=== PATIENT | male | born 1985 | race Caucasian/White ===

== ENCOUNTER 2019-09-07 17:31 | Inpatient (IN) ==
[2019-09-07] MEDS ORDERED: NS IV ONE ×2 (18:01→18:30)
[2019-09-07] MEDS ORDERED: ANTIZOL IV ONE ×2 (18:01→18:30)
[2019-09-07 18:18] LABS: BE 0.2 mmoll (-3.0-3.0); BLOOD TYPE ARTERIAL; HCO3-(ACT) 24.8 mmoll (20.0-26.0); PCO2(98.6) 34 mmHg (35-45); PO2(98.6) 88 mmHg (60-100); SAMPLE BLOOD; SAO2 98.2 % (95.0-100.0); THB 15.1 g/dL (11.5-17.4); pH(98.6) 7.45 (7.35-7.45)
[2019-09-07 18:23] LABS: BASO# 0.04 X1000 (0.0-0.2); BASO% 0.4 % (0.0-0.8); EOS# 0.16 X1000 (0.0-0.7); EOS% 1.7 % (0.0-10.0); HEMOGLOBIN 14.3 g/dL (14.0-18.0); IMM GRAN# 0.01 X1000 (0.0-0.04); IMM GRAN% 0.1 % (0.0-0.5); LYMPH# 1.84 X1000 (1.2-3.4); LYMPH% 19.4 % (20.5-51.1); MCH 22.3 PG (27-31); MCHC 32.5 g/dL (33-37); MCV 68.5 FL (81-99); MONO# 0.77 X1000 (0.11-0.59); MONO% 8.1 % (1.7-9.3); MPV 11.3 FL (7.4-10.4); NEUT# 6.68 X1000 (1.4-6.5); NEUT% 70.3 % (42.2-75.2); PLT 213 X1000 (130-400); RBC 6.42 XMIL (4.7-6.1)
[2019-09-07 18:30] LABS: O2HB 89.1 % (95.0-99.0)
[2019-09-07 18:31] LABS: ALLEN TEST YES; MODALITY ROOM AIR
[2019-09-07 18:42] LABS: ACETAMINOPHEN < 1.2 ug/mL (10-30); AGAP 16; ALBUMIN 4.7 g/dL (3.5-5.0); ALKALINE PHOSPHATASE 84 U/L (32-122); BUN 13 mg/dL (8-22); CALCIUM 9.6 mg/dL (8.8-10.2); CHLORIDE 101 mmol/L (98-107); COSMO 282; CREATININE 0.8 mg/dL (0.7-1.2); ESTIMATED GFR > 60; GLUCOSE 104 mg/dL (70-104); GOT 14 U/L (10-34); GPT 16 U/L (10-44); POTASSIUM 4.2 mmol/L (3.5-5.1); SALICYLATES < 3.00 mg/dL (3-10); SODIUM 141 mmol/L (136-145); TCO2 24 mmol/L (25-35); TOTAL PROTEIN 7.6 g/dL (6.3-8.3)
--- NOTE | 2019-09-07 18:59 | PROVIDER DOCUMENTATION ---
This chart was entered by Nelsy Price Scribe, acting as scribe for Virgil Pastrana MD. HPI-Psychological Disorder - General Chief Complaint: Suicide Attempt Stated Complaint: SI/ antifreeze ingestion Time Seen by Provider: 09/07/19 17:59 Source: patient Allergies/Adverse Reactions: Patient Allergies Allergy/AdvReac Type Severity Reaction Status Date / Time Sulfa (Sulfonamide Allergy Severe ANAPHYLAXIS Verified 09/07/19 18:06 Antibiotics) ibuprofen Allergy VOMITING Verified 09/07/19 18:06 latex Allergy RASH Verified 09/07/19 18:06 Home Medications: Home Medication List Medication Instructions Recorded Confirmed Last Taken Type NK [No Home Medications] 09/07/19 09/07/19 Unknown History - History of Present Illness-Psych Nature of Presenting Problem: pt is a 34 yr old male presenting via EMS with report of suicidal ideation, pt was witnessed by father in law drinking a half gallon of [place] brand antifreeze, 50% ethyl glycol content, father in law immediately called 911 for EMS transport. upon initial exam pt suicidal and refuses help, reports he wants to and he did not want any intervention to save him, after discussion regarding his 5yr old child pt agrees to accept our help. Onset/Duration: reports: 1/2 hour ago (.5hr LIST OF FIRST JOB IDEAS) Timing: reports: still present Severity: reports: severe Situational problems related to:: reports: significant other Psychiatric Complaints: reports: depressed, suicidal ideation Substance Use: reports: denies Previous psych related hospitalizations?: No Patient arrived by:: EMS called by spouse/family (father in law) Similar Symptoms Previously?: No Recently seen or treated by another doctor?: No - Suicidal Ideation How did the ingestion/other suicidal act come to attention?: attempt witnessed by father in law Suicide Risk Assessment: depressed, organized plan, frightened friends-family Clinician's estimation of suicide risk?: high risk Suicidal Attempt Method: reports: Other (anti freeze) Review of Systems - Adult - REVIEW OF SYSTEMS - ADULT Constitutional: reports: no symptoms reported. denies: chills, fever, fatique Eyes: reports: no symptoms reported Ears, Nose, Mouth & Throat: reports: no symptoms reported Cardiovascular: reports: no symptoms reported Respiratory: reports: no symptoms reported Gastrointestinal: reports: no symptoms reported Genitourinary: reports: no symptoms reported Musculoskeletal: reports: no symptoms reported Integumentary: reports: no symptoms reported Neurological: reports: no symptoms reported Psychiatric: reports: anxiety, depression, emotional problems, suicidal thoughts Endocrine: reports: no symptoms reported Hematologic/Lymphatic: reports: no symptoms reported Allergic/Immunologic: reports: no symptoms reported All Other Systems: Reviewed and Negative Past History - Adult - PAST MEDICAL HISTORY-ADULT Review of Records: reports: Nursing Assessment Review, Medications Reviewed, Social history reviewed & non-contributory. 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) Cardiovascular: reports: denies history Respiratory: reports: asthma Gastrointestinal: reports: denies history Obstetrical/Gynecological: reports: denies history Genitourinary: reports: denies history Musculoskeletal: reports: denies history Neurological: reports: denies history Psychiatric: reports: anxiety, depression Endocrine/Immune: reports: denies history Other Conditions: reports: denies history - PRIOR SURGERIES/PROCEDURES Surgical/Procedure History: reports: none - IMMUNIZATION STATUS Childhood Immunizations: See Nurse Assessment Flu Vaccine: See Nurse Assessment - FAMILY HISTORY Family History: reviewed, not pertinent - SOCIAL HISTORY Smoking: cigarettes Provider spent 3-5 mins advising pt. on dangers of tobacco.: Discussed manners to quit use, and f/u contacts for add'l counseling. 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 negative: agitated Behavior/Eye Contact/Speech: cooperative, good eye contact, normal speech, other (mild to moderately intoxicated) Thoughts/Hallucinations: normal thought pattern, no apparent hallucination HENMT: normocephalic/atraumatic, moist mucous membranes, normal ENT inspection Neck: non-tender, full range of motion, supple, normal inspection Respiratory: chest non-tender, lungs clear, normal breath sounds Cardiovascular: normal peripheral pulses, regular rate, rhythm, no edema Abdominal Exam: normal bowel sounds, non tender, soft Lymphatic: no adenopathy Back Exam: normal inspection, no CVA tenderness, no vertebral tenderness Extremity: normal range of motion, non-tender, normal gait, normal inspection Integumentary: normal color, normal turgor, warm/dry Progress - PLAN OF CARE/RESULTS Progress/Plan/Lab Results: Orders Category Date Time Status Admit - [facility] Routine AdmDCTranf 09/07/19 22:29 Active Admit - [facility] Routine AdmDCTranf 09/07/19 19:23 Active Activity - Bedrest with BSC ORDERED Care 09/07/19 22:29 Active Apply Mechanical Device [QM] ORDERED Care 09/07/19 22:29 Completed Aspiration Precautions DIRECTED Care 09/07/19 22:34 Active Cardiac Monitoring DIRECTED Care 09/07/19 18:00 Completed Elevate Head of Bed DIRECTED Care 09/07/19 22:34 Active FSBS/Accucheck Result Q4HR Care 09/07/19 22:29 Active Finger Stick Blood Sugar (ED) DIRECTED Care 09/07/19 18:00 Completed Initiate Psych Med Clear.Chelsey DIRECTED Care 09/07/19 18:22 Completed Intake and Output-Strict ORDERED Care 09/07/19 22:29 Active Misc. NRSG Communication Order DIRECTED Care 09/07/19 22:34 Active NG/OG/Feeding Tube Insertion ORDERED Care 09/07/19 18:29 Completed Neurological Check Q4H Care 09/07/19 22:34 Active Nursing- Assist w/ IS as order [id number] Care 09/07/19 22:29 Active Nursing- MD Consult Request ROUTINE Care 09/07/19 22:32 Completed Psy Observation/Precaution .1:1 Observation Care 09/07/19 18:22 Active Psy Observation/Precaution .Q15 Minute Observation Care 09/07/19 18:22 Active Vital Signs Order Q 4-HR ASSESS Care 09/07/19 22:30 Active Z-Document. for Tele Applied ORDERED Care 09/07/19 22:30 Completed Physician/Provider Consults Routine Cons 09/08/19 07:00 Ordered NPO Diet 09/07/19 22:31 Completed CHEST-PORTABLE [RAD] Stat Exams 09/07/19 18:35 Completed ABG [RESP] Routine Lab 09/07/19 18:04 Completed ABG [RESP] Routine Lab 09/08/19 04:44 Completed ACETAMINOPHEN [TDM] Stat Lab 09/07/19 18:03 Completed ACETAMINOPHEN [TDM] Stat Lab 09/07/19 22:34 Completed ALCOHOL BLOOD Stat Lab 09/07/19 18:03 Completed BASIC METABOLIC PANEL [CHEM] Q4H Lab 09/07/19 23:30 Completed BASIC METABOLIC PANEL [CHEM] Q4H Lab 09/08/19 02:55 Completed CBC WITH DIFF [HEME] Routine Lab 09/08/19 04:00 Completed CBC WITH ELECTRONIC DIFF [HEME] Stat Lab 09/07/19 18:03 Completed COMPREHENSIVE METABOLIC PANEL [CHEM] Routine Lab 09/08/19 04:00 Completed COMPREHENSIVE METABOLIC PANEL [CHEM] Stat Lab 09/07/19 18:03 Completed LACTATE, PLASMA [CHEM] Stat Lab 09/07/19 18:03 Completed MAGNESIUM [CHEM] Q4H Lab 09/07/19 23:30 Completed MAGNESIUM [CHEM] Q4H Lab 09/08/19 02:55 Completed MAGNESIUM [CHEM] Routine Lab 09/08/19 04:00 Completed PHOSPHORUS [CHEM] Q4H Lab 09/07/19 23:30 Completed PHOSPHORUS [CHEM] Q4H Lab 09/08/19 02:55 Completed SALICYLATES [TDM] Stat Lab 09/07/19 18:03 Completed SALICYLATES [TDM] Stat Lab 09/07/19 22:34 Completed SERUM OSMOLALITY [CHEM] Stat Lab 09/07/19 18:03 Completed URINALYSIS [URINALYSIS] Stat Lab 09/07/19 20:50 Com[address]UG SCREEN PL Stat Lab 09/07/19 20:50 Completed Fomepizole [Antizol] 1.25 gm Med 09/07/19 18:30 Discontinued 0.9% Sodium Chloride Inj [Ns] 100 ml IV ONCE Incentive Spirometer Routine Oth 09/07/19 22:29 Completed Oxygen Device Routine Oth 09/07/19 22:29 Completed Pulse Oximetry Routine Oth 09/07/19 22:29 Completed Telemetry [OM.EQ] Routine Oth 09/07/19 22:29 Active EKG [EKG] Stat Ther 09/07/19 18:00 Draft XXNasogastric Tube Placement Routine Ther 09/07/19 18:19 Ordered Transfer/Admit Order [TRANSFER] Routine Transfer 09/07/19 19:30 Completed Result Diagrams: 09/09/19 05:00 09/09/19 17:47 - REASSESSMENT Reassessment #1 Time Reassessed: 18:42 Status: unchanged (100ml gastric contents out by ng tube. inital L.A. 3.0. Fomepazole loading dose began infusion 18:32. pt mother at bedside and helped steve rene childhood hx.) - EKG 1 Time of EKG reading by physician:: 18:01 EKG Read and Signed by:: Virgil Pastrana EKG Interpretation (*Must complete 3 of following elements*): Normal Rate: 86 Rhythm: nsr [place]: normal QRS: normal DC Interval: normal ST Wave: normal - XRAY 1 XRAY Study: Chest Impression: Normal (lungs expanded, tip of ng tube in stomach) - CONSULTS/PCP/HOSPITALIST Notification #1 *Consult/PCP/Hospitalist*: Dr Banks Time Discussed: 18:20 Reason/Comments: discussed plan of care for pt admission by transfer to [facility] Consult Disposition: Admit (icu) #2 Consult: Dr Lucian Silva-poison control Time Discussed: 18:10 Reason/Comments: discussed specifc treatment including appropriate Fomepizole dosing - CHANGE OF SHIFT REPORT (ED Provider) 1 Report Given and Care Transferred to:: DR Keyshawn BUSTILLO Time of Transfer: 19:00 Items Pending: Physician Consult/Arrival Departure - Departure Date of Disposition Decision: 09/07/19 Time of Disposition Decision: 18:22 DIAGNOSIS: Ethylene glycol poisoning, Suicide attempt Disposition: ADMITTED INPATIENT 09 Certified Medical Emergency: Emergent Condition: Fair - Critical Care Note This patient required my direct & personal management of CC.: Yes Total Time (mins): 80 Critical Care Statement: This patient required my direct personal management to treat or rule out processes, the absence of which, could potentiallly result in sudden, clinically significant life or limb threatening deterioration. Attestation - Physician/ CARRIE Attestation Patient care was provided by Advanced Practice Provider:: No The physician spent face to face time with patient:: Yes Advanced Practice Provider documentation review:: Supervising physician onsite and consulted in the evaluation and care of this patient. The physician did have a face to face encounter with the patient. This chart was documented by the indicated scribe, (Nelsy Price Scribe) and accurately reflects the services I performed and decisions made by me, Hari lantigua,Virgil Martinez MD, as attested by the provider's signature.
--- NOTE | 2019-09-07 19:20 | Diag Imaging Result Doc PS360 ---
EXAM: CHEST-PORTABLE HISTORY: ng tube placement TECHNIQUE: Single view COMPARISON: None. FINDINGS: The lungs are well expanded. A nasogastric tube overlies the esophagus and stomach. The heart is not enlarged. The vessels are not distended. There are no infiltrates. No effusion identified. IMPRESSION: Nasogastric tube in good position. Electronically signed by Jerry Pitt 09/07/2019 7:18 PM
--- NOTE | 2019-09-07 20:30 | EKG Report ---
Test Performed on : 09/07/2019 6:01:53 PM Test Reason : overdose Blood Pressure : / mmHG Vent. Rate : 086 BPM Atrial Rate : 086 BPM P-R Int : 126 ms QRS Dur : 090 ms QT Int : 372 ms P-R-T Axes : 071 086 067 degrees QTc Int : 445 ms Normal sinus rhythm. Normal ECG No previous ECGs available Unconfirmed Result
[2019-09-07 20:58] LABS: URINE SOURCE CLEAN CATCH
[2019-09-07 21:05] LABS: BILIRUBIN URINE NEGATIVE (NEGATIVE); BLOOD URINE NEGATIVE (NEGATIVE); COLOR YELLOW; GLUCOSE URINE NEGATIVE (NEGATIVE); KETONE URINE 20 mg/dL (NEGATIVE); LEUKOCYTES URINE NEGATIVE (NEGATIVE); NITRITE URINE NEGATIVE (NEGATIVE); PROTEIN URINE TRACE mg/dL (NEGATIVE); SP GRAVITY URINE 1.021; TURBIDITY URINE CLEAR (CLEAR); UROBILINOGEN URINE NORMAL (NORMAL)
[2019-09-07 21:06] LABS: UR EPITHELIAL CELLS <10 /HPF (<10); URINE BACTERIA NEGATIVE /HPF; URINE RBC <10 /HPF (<10); URINE WBC <10 /HPF (<10)
[2019-09-07 21:30] LABS: UR AMPHETAMINES QUAL PRESUMPTIVE POSITIVE (NONE DETECT); UR BARBITUATES QUAL NONE DETECTED (NONE DETECT); UR BENZODIAZEPIN QUAL NONE DETECTED (NONE DETECT); UR COCAINE QUAL NONE DETECTED (NONE DETECT); UR METHADONE QUAL NONE DETECTED (NONE DETECT); UR METHAMPHETAMINE QUAL PRESUMPTIVE POSITIVE (NONE DETECT); UR OPIATES QUAL NONE DETECTED (NONE DETECT); UR OXYCODONE QUAL NONE DETECTED (NONE DETECT); UR PCP QUAL NONE DETECTED (NONE DETECT); UR PROPOXYPHENE QUAL NONE DETECTED (NONE DETECT); UR TCA QUAL NONE DETECTED (NONE DETECT)
[2019-09-07 21:31] LABS: UR CANNABINOIDS QUAL PRESUMPTIVE POSITIVE (NONE DETECT)
[2019-09-07] MEDS: NS 1,000 ML IV SCH (23:10)
[2019-09-07 23:59] LABS: ALLEN TEST YES; BE 0.2 mmoll (-3.0-3.0); BLOOD TYPE ARTERIAL; METHB 1.3 % (0.0-1.5); MODALITY ROOM AIR; O2(CT) 20.2 mL/dL (15.0-23.0); O2HB 93.8 % (95.0-99.0); PCO2(98.6) 34 mmHg (35-45); PO2(98.6) 110 mmHg (60-100); SAMPLE BLOOD; SAO2 98.9 % (95.0-100.0); THB 15.2 g/dL (11.5-17.4); pH(98.6) 7.45 (7.35-7.45)
[2019-09-08 00:13] LABS: AGAP 16; BUN 11 mg/dL (8-22); CALCIUM 9.8 mg/dL (8.8-10.2); CHLORIDE 104 mmol/L (98-107); COSMO 280; CREATININE 0.8 mg/dL (0.7-1.2); ESTIMATED GFR > 60; GLUCOSE 93 mg/dL (70-104); MAGNESIUM 2.1 mg/dL (1.5-2.7); PHOSPHORUS 3.6 mg/dL (2.7-4.5); POTASSIUM 4.1 mmol/L (3.5-5.1); SODIUM 141 mmol/L (136-145); TCO2 21 mmol/L (25-35)
[2019-09-08 00:23] LABS: ACETAMINOPHEN < 1.2 ug/mL (10-30); SALICYLATES < 3.00 mg/dL (3-10)
[2019-09-08] MEDS ORDERED: ZOFRAN IV PRN (01:02)
[2019-09-08] MEDS ORDERED: TYLENOL PO PRN (01:02)
[2019-09-08] MEDS ORDERED: BLISTEX MEDICATED BERRY LIP BALM TOP PRN (01:04)
[2019-09-08 03:55] LABS: AGAP 11; BUN 12 mg/dL (8-22); CHLORIDE 105 mmol/L (98-107); COSMO 279; CREATININE 0.8 mg/dL (0.7-1.2); ESTIMATED GFR > 60; GLUCOSE 94 mg/dL (70-104); PHOSPHORUS 3.3 mg/dL (2.7-4.5); POTASSIUM 4.1 mmol/L (3.5-5.1); SODIUM 140 mmol/L (136-145); TCO2 24 mmol/L (25-35)
[2019-09-08 04:31] LABS: BASO# 0.07 X1000 (0.0-0.2); BASO% 0.8 % (0.0-0.8); EOS# 0.22 X1000 (0.0-0.7); EOS% 2.5 % (0.0-10.0); HEMATOCRIT 42.1 % (42.0-52.0); HEMOGLOBIN 13.7 g/dL (14.0-18.0); IMM GRAN# 0.02 X1000 (0.0-0.04); IMM GRAN% 0.2 % (0.0-0.5); LYMPH% 27.6 % (20.5-51.1); MCH 22.5 PG (27-31); MCHC 32.5 g/dL (33-37); MCV 69.2 FL (81-99); MONO# 0.73 X1000 (0.11-0.59); MONO% 8.4 % (1.7-9.3); MPV 11.3 FL (7.4-10.4); NEUT# 5.25 X1000 (1.4-6.5); NEUT% 60.5 % (42.2-75.2); PLT 200 X1000 (130-400); RBC 6.08 XMIL (4.7-6.1); RDW 15.2 % (11.5-14.5); WBC 8.69 X1000 (4.8-10.8)
[2019-09-08 04:53] LABS: AGAP 10; ALB/GLOB RATIO 1.4; ALBUMIN 3.9 g/dL (3.5-5.0); ALKALINE PHOSPHATASE 67 U/L (32-122); BUN 11 mg/dL (8-22); CHLORIDE 106 mmol/L (98-107); COSMO 277; CREATININE 0.9 mg/dL (0.7-1.2); ESTIMATED GFR > 60; GLUCOSE 94 mg/dL (70-104); GOT 13 U/L (10-34); GPT 12 U/L (10-44); POTASSIUM 4.2 mmol/L (3.5-5.1); SODIUM 139 mmol/L (136-145); TCO2 23 mmol/L (25-35); TOTAL BILIRUBIN 0.53 mg/dL (0.20-1.00); TOTAL PROTEIN 6.6 g/dL (6.3-8.3)
[2019-09-08 04:54] LABS: ALLEN TEST YES; BLOOD TYPE ARTERIAL; HCO3-(ACT) 24.8 mmoll (20.0-26.0); METHB 1.5 % (0.0-1.5); O2(CT) 19.4 mL/dL (15.0-23.0); O2HB 93.4 % (95.0-99.0); PCO2(98.6) 40 mmHg (35-45); PO2(98.6) 88 mmHg (60-100); SAMPLE BLOOD; SAO2 97.7 % (95.0-100.0); THB 14.7 g/dL (11.5-17.4)
[2019-09-08 04:55] LABS: MODALITY ROOM AIR
[2019-09-08] MEDS: NS IV SCH ×2 (06:31→18:35)
[2019-09-08] MEDS: ANTIZOL IV SCH ×2 (06:31→18:35)
[2019-09-08] MEDS: NS 1,000 ML IV SCH (06:31)
--- NOTE | 2019-09-08 06:55 | HISTORY AND PHYSICAL ---
CHIEF COMPLAINT: Suicide attempt. HISTORY OF PRESENT ILLNESS: Mr. Fowler is a 34-year-old male who was brought to the ER at [facility] at 1731 yesterday evening on 09/07/2019. According to the patient and the patient's mother, who was at bedside, at approximately 1700 he did intentionally ingest antifreeze. The patient states that prior to this afternoon, he has not had any complaints or symptoms. He stated that this afternoon his girlfriend of 7 years, who he has a child with who is 5 years old, decided to leave him, and according to him, walked out on him and his child. 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 Fortunately, his girlfriend's brother was there and did witness this and went and got the girlfriend's father who came to where he was and did knock the bottle of antifreeze out of his hand. The patient's mother, who was at bedside, reported that the girlfriend's father did immediately call her to inform her what was going on, and while she was on the phone with him the patient did pick the bottle of antifreeze back up and did start drinking some more. After this, they were able to get the bottle away from him permanently. According to what was reported to me, the residence he was at is where him and his girlfriend lived with their son, though the girlfriend's father and brother do live there with him as well. According to reports, per the patient and the patient's mother, this was a 1 gallon jug of antifreeze that was mixed with water. The patient reports that he did drink possibly half of this gallon of antifreeze. Fortunately, they did immediately call 911 and the patient was brought to the ER. According to the ER notes, the patient was initially reluctant and was refusing help, though after the ER staff and the patient's family talked to him, he did agree to stay and accept help. According to initial ER notes, they did call Poison Control at and spoke with Niya. Also, the ER physician at [facility] did speak with the charger operator helper at Poison Control as well. They did recommend standard toxicology labs including serum ethanol, serum osmolality, serum ethylene glycol, lactate, urinalysis, arterial blood gases, and to watch and calculate anon and osmolality gap. They did recommend also to watch for metabolic acidosis and hypocalcemia and to also start the patient on IV Antizol. The patient's initial serum ethanol alcohol level was 0. The ethylene glycol is a send out. We are awaiting results at this time. The patient will be transferred to [facility] to the ICU for further treatment and evaluation. Upon my evaluation in the ER, the patient was resting in the bed with his eyes closed though was easily arousable by verbal calling his name. Once awoken, he was alert and oriented to person, place, time, and situation. The patient reported to me that prior to this afternoon before his girlfriend told him that she was leaving that he had felt fine. He had not been depressed. He had not been having any suicidal ideations and had not had a plan either. He denied any other symptoms as well. The only symptom that he reported is that he does have some numbness in his left hand. This has been ongoing for approximately 6 months to a year. This is not of new onset and has not worsened. He reports that he has never received inpatient treatment for his depression, though did receive therapy as a child. He did report he did use to take an antidepressant, though has not taken this for quite some time. He denies any other prescription or [id number] medication use except for some Tums for indigestion and he does smoke marijuana. He denies any other illicit drug use, alcohol use, or any other type of ingestion of any other substances recently. At this time, the patient is being very cooperative. He is agreeing to stay in the hospital, receive treatment and a psychiatric evaluation once he is medically stable. He does seem to be remorseful about ingesting the antifreeze this afternoon. He is reporting headache but denies any dizziness or lightheadedness. He does report that he does feel a little weak. This in generalized weakness. He is not reporting any unilateral weakness. He does report that he feels a little drowsy as well. He denies any chest pain, shortness of breath, cough. He denies any fever, body aches, or chills. He denies any abdominal pain, nausea, vomiting, or diarrhea. He denies any hematochezia or melena. He denies any dysuria or urinary frequency. Other than the numbness previously mentioned in his left hand, he denies any other numbness, tingling, swelling, or pain in extremities. In the ER, they did place an NG tube and were able to suction, according to nurses report, 300 mL of green greenish colored fluid, though the patient did want the NG tube taken out and this was discontinued per the patient's request. REVIEW OF SYSTEMS: A 14-point review of systems was conducted with the patient and all were negative except for pertinent positives mentioned in above HPI. PAST MEDICAL HISTORY: 1. Hyperlipidemia. 2. 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 3. Depression. PAST SURGICAL HISTORY: [place] teeth surgery. SOCIAL HISTORY
--- NOTE | 2019-09-08 07:01 | EKG Report ---
Test Performed on : 09/08/2019 06:39:03 AM Test Reason : Overdose Blood Pressure : / mmHG Vent. Rate : 053 BPM Atrial Rate : 053 BPM P-R Int : 118 ms QRS Dur : 088 ms QT Int : 436 ms P-R-T Axes : 037 088 076 degrees QTc Int : 409 ms Sinus bradycardia. Otherwise normal ECG When compared with ECG of 07-SEP-2019 18:01, (Unconfirmed) Vent. rate has decreased BY 33 BPM Confirmed by Zeferino PLATA, Ja Delacruz ([id number]) on 09/11/2019 5:54:22 PM
[2019-09-08] MEDS: NICODERM PATCH TD PRN (13:26)
--- NOTE | 2019-09-08 16:08 | PROGRESS NOTE ---
DATE: 09/08/2019 SUBJECTIVE: The patient reports feeling fine. No nausea or vomiting. No headache. He is feeling overall fine. OBJECTIVE: Vital Signs: Temperature degrees 98.5 degrees, heart rate 72, respiratory rate 14, blood pressure 111/65, O2 saturation 98% on room air. General: This is a 34-year-old male, lying in bed, in no acute distress. Cardiovascular: S1, S2 heard. No murmurs, gallops, or rubs. Regular rate and rhythm. Respiratory: Clear bilaterally to auscultation. No work of breathing or using accessory muscles. Abdomen: Soft, nontender to palpation. Bowel sounds present. No organomegaly. Extremities: No clubbing, cyanosis, or edema. Peripheral pulses present in both legs. Neurological: Patient is alert and oriented x3. Moves 4 extremities. LABORATORY DATA: Reviewed. ASSESSMENT AND PLAN: 1. Ethylene glycol poisoning ingestion. The patient has been admitted to intensive care unit for that condition. At admission Poison Control was contacted and currently he is on the antidote Fomepizole. Also, Dr. Duarte has been evaluating this patient. Results of urine and serum osmolality are still pending. We will continue to monitor this patient closely in intensive care unit. 2. Suicidal attempt. The patient is not suicidal any more. But we will continue with one-to-one observation. 3. Disposition. We will continue to monitor this patient closely. cc: Parker Crespo MD
--- NOTE | 2019-09-08 18:57 | NEPHROLOGY CONSULTATION ---
DATE: 09/08/2019 REASON FOR CONSULTATION: Ethylene glycol ingestion. HISTORY OF PRESENT ILLNESS: Mr. Fowler is a 34-year-old man, who by his report, ingested about a third to half of a gallon of antifreeze in an impulsive suicide attempt last evening. This was a witnessed event and he was transported immediately to the emergency room, where he had NG tube placement and gastric evacuation. He was treated promptly with fomepizole and we are consulted this morning to decide whether dialysis is required. PAST MEDICAL HISTORY: He has no known medical history otherwise. MEDICATIONS: None. ALLERGIES: He does have an allergy to sulfa and ibuprofen. SOCIAL HISTORY: His longtime girlfriend and the mother of his child abruptly left yesterday, prompting the above event. FAMILY HISTORY: Noncontributory. REVIEW OF SYSTEMS: Noncontributory. PHYSICAL EXAMINATION: Vital Signs: Blood pressure 96/63, heart rate 59, respirations 17, temperature 99.1 degrees. Intake 1.3 L, output not recorded. General: A healthy-appearing, young man, in no acute distress. Skin: Warm and dry. Conjunctivae are pink. Pupils are equal. Oropharynx is normal. Normal tongue. Normal teeth. Neck: Supple. Trachea is midline. Neck veins are not distended. PMI nondisplaced. Regular rate and rhythm without gallop or murmur. Lungs: Equal breath sounds without crackles or wheezes. Abdomen: Soft, nontender. Bowel sounds present. No organomegaly, masses, bruits. Extremities: No edema, clubbing, or cyanosis. Neurologic: Nonfocal. IMPRESSION/PLAN: Ethylene glycol ingestion. His initial osmolality gap was 14. We do not have a repeat serum osmolality, but they have been sent to the lab. They anticipate providing results in the mid afternoon. Simply continue fomepizole for now. Unlikely that he will require dialysis for management. cc: Bony Gallardo MD
[2019-09-09 06:02] LABS: BASO# 0.09 X1000 (0.0-0.2); EOS# 0.22 X1000 (0.0-0.7); EOS% 2.3 % (0.0-10.0); HEMATOCRIT 44.8 % (42.0-52.0); HEMOGLOBIN 14.4 g/dL (14.0-18.0); IMM GRAN# 0.02 X1000 (0.0-0.04); IMM GRAN% 0.2 % (0.0-0.5); LYMPH% 23.2 % (20.5-51.1); MCH 22.5 PG (27-31); MCHC 32.1 g/dL (33-37); MCV 69.9 FL (81-99); MONO# 0.78 X1000 (0.11-0.59); MONO% 8.2 % (1.7-9.3); MPV 11.4 FL (7.4-10.4); NEUT# 6.16 X1000 (1.4-6.5); NEUT% 65.1 % (42.2-75.2); PLT 210 X1000 (130-400); RBC 6.41 XMIL (4.7-6.1); RDW 15.2 % (11.5-14.5); WBC 9.47 X1000 (4.8-10.8)
[2019-09-09 06:22] LABS: AGAP 14; ALBUMIN 4.3 g/dL (3.5-5.0); BUN 16 mg/dL (8-22); CALCIUM 9.6 mg/dL (8.8-10.2); CHLORIDE 101 mmol/L (98-107); COSMO 276; CREATININE 0.9 mg/dL (0.7-1.2); ESTIMATED GFR > 60; GLUCOSE 79 mg/dL (70-104); PHOSPHORUS 2.9 mg/dL (2.7-4.5); POTASSIUM 4.1 mmol/L (3.5-5.1); SODIUM 138 mmol/L (136-145); TCO2 23 mmol/L (25-35)
[2019-09-09] MEDS: ANTIZOL IV SCH ×2 (06:45→18:51)
[2019-09-09] MEDS: NS IV SCH ×2 (06:45→18:51)
[2019-09-09 10:17] LABS: AGAP 10; BUN 15 mg/dL (8-22); CALCIUM 9.4 mg/dL (8.8-10.2); CHLORIDE 101 mmol/L (98-107); COSMO 278; CREATININE 0.9 mg/dL (0.7-1.2); ESTIMATED GFR > 60; GLUCOSE 122 mg/dL (70-104); POTASSIUM 4.3 mmol/L (3.5-5.1); SODIUM 138 mmol/L (136-145); TCO2 27 mmol/L (25-35)
--- NOTE | 2019-09-09 18:01 | PROGRESS NOTE ---
DATE: 09/09/2019 INTERVAL HISTORY: Patient with no acute events overnight. No new complaints. Still denying current suicidal ideation, but uncertain if I entirely believe him as he was found attempting to chug an entire bottle of antifreeze in an effort to hurt himself. REVIEW OF SYSTEMS: A 12-point review of systems is negative, except as per interval history. LABORATORY DATA: WBC 9.4, hemoglobin 14.4, hematocrit 44.8, platelets 210,000. Basic metabolic panel unremarkable, aside from glucose 122, serum osmolality 297. VITAL SIGNS: Temperature max 98.5 degrees, pulse 78, respirations 19, blood pressure 127/78, O2 saturation 92% on room air. PHYSICAL EXAMINATION: General: No acute distress. Vital signs: As above. HEENT: Normocephalic, atraumatic. Moist mucous membranes. No cervical adenopathy. Cardiovascular: Regular rate and rhythm. No murmurs noted. Pulmonary: Clear to auscultation bilaterally. No wheezing, rales, or rhonchi. Abdomen: Soft, nontender, nondistended. Bowel sounds positive. Extremities: Peripheral pulses intact. No clubbing or cyanosis. Psychiatric: Surprisingly normal-appearing mood and affect. Awake, alert, oriented x3. ASSESSMENT AND PLAN: 1. Suicide attempt with ethylene glycol ingestion. Patient remains on fomepizole. Osmolality is still high, but trending down. Kidney function remains normal, so it appears patient was placed on fomepizole before significant damage could be done. We will see what Poison Control says, but will likely need one more day of fomepizole as his osmol gap is improving but still elevated. Hopefully, his osmolality will normalize tomorrow, and we can take him off that and medically clear him for [facility] to take a look at. Patient currently denying active suicidality, but given how he came in with deliberate high dose ethylene glycol intoxication, I suspect he will need inpatient treatment. 2. Major depression, single episode, severe. Treating suicide attempt as above and will need psychiatric evaluation prior to discharge and likely inpatient treatment. [facility]
[2019-09-09 18:22] LABS: AGAP 14; BUN 15 mg/dL (8-22); CALCIUM 9.2 mg/dL (8.8-10.2); CHLORIDE 101 mmol/L (98-107); COSMO 278; CREATININE 1.1 mg/dL (0.7-1.2); ESTIMATED GFR > 60; GLUCOSE 91 mg/dL (70-104); POTASSIUM 3.8 mmol/L (3.5-5.1); SODIUM 139 mmol/L (136-145); TCO2 24 mmol/L (25-35)
--- NOTE | 2019-09-09 20:05 | NEPHROLOGY PROGRESS NOTE ---
DATE: 09/09/2019 SUBJECTIVE: He feels well. He is eating. No complaints. OBJECTIVE: Vital Signs: Blood pressure 127/78, heart rate 78, respirations 19, afebrile. General: No acute distress. Skin: Warm and dry. Neck: Neck veins not distended. Heart: Regular. No gallops. Lungs: Equal. No crackles. Abdomen: Benign. Extremities: No edema. IMPRESSION: Ethylene glycol ingestion. Anion gap this morning is 10 with osmolality gap of 19. This is improved significantly from peak osmolal gap of 46 to current osmolal gap of 19. Continue fomepizole dosing at least through tomorrow morning. We will check osmolal gap again this afternoon and in the morning before deciding about further treatment. cc: MD MUSTAPHA Dos Santos
[2019-09-10] MEDS: ANTIZOL IV SCH ×2 (06:50→18:41)
[2019-09-10] MEDS: NS IV SCH ×2 (06:50→18:41)
[2019-09-10 07:36] LABS: BASO# 0.05 X1000 (0.0-0.2); BASO% 0.4 % (0.0-0.8); EOS# 0.23 X1000 (0.0-0.7); EOS% 1.9 % (0.0-10.0); HEMATOCRIT 45.9 % (42.0-52.0); IMM GRAN# 0.04 X1000 (0.0-0.04); IMM GRAN% 0.3 % (0.0-0.5); LYMPH# 1.66 X1000 (1.2-3.4); LYMPH% 13.5 % (20.5-51.1); MCH 22.8 PG (27-31); MCHC 32.7 g/dL (33-37); MCV 69.7 FL (81-99); MONO# 1.05 X1000 (0.11-0.59); MONO% 8.6 % (1.7-9.3); MPV 11.8 FL (7.4-10.4); NEUT# 9.24 X1000 (1.4-6.5); NEUT% 75.3 % (42.2-75.2); PLT 226 X1000 (130-400); RBC 6.59 XMIL (4.7-6.1); RDW 15.8 % (11.5-14.5); WBC 12.27 X1000 (4.8-10.8)
[2019-09-10 07:57] LABS: AGAP 10; ALBUMIN 4.2 g/dL (3.5-5.0); BUN 16 mg/dL (8-22); CALCIUM 9.4 mg/dL (8.8-10.2); CHLORIDE 103 mmol/L (98-107); COSMO 281; CREATININE 1.1 mg/dL (0.7-1.2); ESTIMATED GFR > 60; GLUCOSE 98 mg/dL (70-104); PHOSPHORUS 3.1 mg/dL (2.7-4.5); POTASSIUM 4.2 mmol/L (3.5-5.1); SODIUM 140 mmol/L (136-145); TCO2 27 mmol/L (25-35)
--- NOTE | 2019-09-10 15:36 | PROGRESS NOTE ---
DATE: 09/10/2019 INTERVAL HISTORY: Patient is essentially asymptomatic at this point. No ill affects from his suicide attempt. Osmolality gap still a little bit elevated. No acute events overnight. REVIEW OF SYSTEMS: Twelve point review of systems negative except as per interval history. LABS: Sodium 140, potassium 4.2, chloride 103, bicarb 27, BUN 16, creatinine 1.1, glucose 98, calculated serum osmolality 291, measured at 305. Serum osmolality gap 14; still a little elevated. PHYSICAL EXAMINATION: Vital Signs: T-max 98.3 degrees, pulse 95, respirations 17, blood pressure 127/84, O2 saturation 100% on room air. General: No acute distress. HEENT: Normocephalic, atraumatic. Moist mucous membranes. No cervical adenopathy. Cardiovascular: Regular rate and rhythm. No murmurs noted. Pulmonary: Clear to auscultation bilaterally. No wheezing, rales, or rhonchi. Abdomen: Soft, nontender, nondistended. Bowel sounds positive. Extremities: Peripheral pulses intact. No clubbing or cyanosis. Neurologic: Cranial nerves grossly intact. No focal deficits identified. Psychiatric: Essentially normal mood and affect, despite this suicide attempt. Awake, alert, oriented x3. ASSESSMENT AND PLAN: 1. Suicide attempt by ethylene glycol ingestion. Patient with witnessed ingestion of fairly large amount of diluted antifreeze. Remains on fomepizole. Osmolality gap is trending down, but still a little bit elevated, approximately 14 just barely above normal. Thought he might have normalized today, but looks like he will likely have to continue fomepizole one more day. Hopefully, his osmolality gap will be closed tomorrow, we can get [facility] to evaluate him for possible inpatient treatment. The patient continues to deny active suicidality, but had a fairly definite suicide attempt. 2. Major depression, single episode, severe. Treating suicide attempt as above and will need psychiatric evaluation for possible inpatient treatment prior to discharge. 3. Polysubstance abuse. Patient has been counseled on cessation. No sign of withdrawal of any kind.
[2019-09-10] MEDS: NICODERM PATCH TD PRN (20:06)
[2019-09-11] MEDS: ANTIZOL IV SCH ×2 (06:36→18:51)
[2019-09-11] MEDS: NS IV SCH ×2 (06:36→18:51)
[2019-09-11 07:27] LABS: BASO# 0.06 X1000 (0.0-0.2); BASO% 0.7 % (0.0-0.8); EOS# 0.24 X1000 (0.0-0.7); EOS% 2.7 % (0.0-10.0); HEMOGLOBIN 14.3 g/dL (14.0-18.0); IMM GRAN# 0.03 X1000 (0.0-0.04); IMM GRAN% 0.3 % (0.0-0.5); LYMPH# 1.21 X1000 (1.2-3.4); LYMPH% 13.4 % (20.5-51.1); MCH 22.7 PG (27-31); MCHC 32.5 g/dL (33-37); MCV 69.7 FL (81-99); MONO# 1.17 X1000 (0.11-0.59); MONO% 12.9 % (1.7-9.3); MPV 11.6 FL (7.4-10.4); NEUT# 6.33 X1000 (1.4-6.5); PLT 194 X1000 (130-400); RBC 6.31 XMIL (4.7-6.1); WBC 9.04 X1000 (4.8-10.8)
[2019-09-11 07:44] LABS: EOS 6 % (1-10); LYMPHS 8 % (21-51); MONO 8 % (1-9); SEGS 76 % (42-75)
[2019-09-11 07:48] LABS: AGAP 10; ALBUMIN 4.1 g/dL (3.5-5.0); BUN 14 mg/dL (8-22); CALCIUM 9.7 mg/dL (8.8-10.2); CHLORIDE 99 mmol/L (98-107); COSMO 274; CREATININE 1.1 mg/dL (0.7-1.2); ESTIMATED GFR > 60; GLUCOSE 98 mg/dL (70-104); PHOSPHORUS 2.8 mg/dL (2.7-4.5); POTASSIUM 3.9 mmol/L (3.5-5.1); SODIUM 137 mmol/L (136-145); TCO2 28 mmol/L (25-35)
--- NOTE | 2019-09-11 10:23 | NEPHROLOGY PROGRESS NOTE ---
DATE: 09/11/2019 Date Seen: 09/11/2019 Time Seen: 0755 SUBJECTIVE: Mr. Fowler is sitting up in bed. His sitter is at the bedside. He denies any chest pain or increased work of breathing. OBJECTIVE: Vital Signs: Temperature 97.5 degrees, blood pressure 110/58, heart rate 72, respirations are 12. He is on room air/ last recorded saturation 100%. He has had 100 in he has had 2225 out to void. LABS: Sodium is 137, potassium 3.9, chloride 99, CO2 28, BUN 14, creatinine 1.1, glucose 98. His anion gap has remained stable at 10 for the last 24 hours. Calcium 9.7, phosphorus 2.8, albumin is 4.1. White count 9.04, hemoglobin 14.3, hematocrit 44, platelet count 194,000. PHYSICAL EXAMINATION: General: This is a 34-year-old white male resting quietly in bed. He appears in no acute distress. Skin: Warm and dry. HEENT: Normocephalic, atraumatic. Conjunctiva is pale pink he has HARRISON. Mucous membranes are dry. Neck: Supple. Trachea midline. There is no evidence of JVD. Cardiovascular: Regular rate and rhythm. He is sinus rhythm on the monitor. Lungs: Clear to auscultation bilaterally. Equal excursion on room air. Abdomen: Soft, round, nontender. Positive bowel sounds. Genitourinary: Not inspected. Patient has been voiding adequate amount recorded. Integumentary: Integumentary no rashes or lesions noted though he does have tattoos to the left upper arm and right. Extremities: Have no edema, no clubbing or cyanosis. Neurological: He is awake and alert to person, place and time. ASSESSMENT AND PLAN: 1. Ethylene glycol ingestion. Anion gap has remained stable at 10. Osmolar gap is improving but still abnormal (15). I will recheck it this evening and in the morning with a plan to stop the Fomepizole when his osmolar gap is <=10. rg 2. Patient remains under caution with a sitter at the bedside with watch. I would like to thank you for allowing us to follow with this patient. Dictated by ANA Mcgee for Bony Gallardo MD Face to face encounter, data reviewed, discussed with Meli Matamoros on 09/11/19. I agree with the above assessment and plan of care. cc: ANA Mcgee MD [facility]TD[facility]
--- NOTE | 2019-09-11 14:50 | PROGRESS NOTE ---
DATE: 09/11/2019 SUBJECTIVE: The patient has no major complaints. He looks fine to me. OBJECTIVE: Vital Signs: Blood pressure 123/80, heart rate 88, respiratory 14, temperature 97.6 degrees, saturating 100% on room air. Cardiovascular: Regular rate and rhythm. Pulmonary: Bilateral breath sounds. Clear to auscultation. GI: Soft, nontender, nondistended. Bowel sounds are positive. LABORATORY DATA: White count is 9, hemoglobin and hematocrit 14 and 44, platelets 194,000. Basic was normal. There is an osmolal gap of about 13, although the serum osmolality now is normal. The gap yesterday was in the 20s. There is no anion gap, 10, and a bicarb is 28. ASSESSMENT AND PLAN: 1. I guess we are going to give another day of fomepizole ethylene glycol ingestion. The patient continues to be on fomepizole. We are looking at an osmolal gap of less than 10, and since it is still there, although improving, will continue with fomepizole. 2. Major depression, suicidality. Will get a [facility] evaluation once available, and follow. Anticipate discharge tomorrow. I would think that probably it is normal tomorrow. He is not continuing to get fluids, but I guess we are giving him fomepizole, so will see how things look. 3. Disposition. Anticipate discharge, hopefully tomorrow. cc: Zenon Berrios MD
[2019-09-11 18:49] LABS: AGAP 13; BUN 15 mg/dL (8-22); CALCIUM 9.7 mg/dL (8.8-10.2); CHLORIDE 100 mmol/L (98-107); COSMO 279; CREATININE 1.1 mg/dL (0.7-1.2); ESTIMATED GFR > 60; GLUCOSE 85 mg/dL (70-104); POTASSIUM 3.9 mmol/L (3.5-5.1); SODIUM 140 mmol/L (136-145); TCO2 27 mmol/L (25-35)
[2019-09-12] MEDS: NS IV SCH ×2 (05:45→18:54)
[2019-09-12] MEDS: ANTIZOL IV SCH ×2 (05:45→18:54)
[2019-09-12 08:01] LABS: AGAP 10; ALBUMIN 3.9 g/dL (3.5-5.0); BUN 16 mg/dL (8-22); CALCIUM 9.4 mg/dL (8.8-10.2); CHLORIDE 104 mmol/L (98-107); COSMO 283; CREATININE 1.1 mg/dL (0.7-1.2); ESTIMATED GFR > 60; GLUCOSE 81 mg/dL (70-104); PHOSPHORUS 4.5 mg/dL (2.7-4.5); POTASSIUM 4.4 mmol/L (3.5-5.1); SODIUM 142 mmol/L (136-145); TCO2 28 mmol/L (25-35)
--- NOTE | 2019-09-12 09:52 | NEPHROLOGY PROGRESS NOTE ---
DATE: 09/12/2019 SUBJECTIVE: Mr. Fowler is resting quietly in bed. He has a sitter at the bedside. He has no complaints, though he states that he would like to get up and start moving around. OBJECTIVE: Vital Signs: Temperature 98.3 degrees, blood pressure 121/68, heart rate 68, respirations 18. He is on room air. He has had 300 in, he has had 800 out to void. LABS: Are currently pending this a.m. Previous potassium 3.9, CO2 27 with a BUN of 15, creatinine 1.1. Previous hemoglobin 14.3. The patient had an osmolar gap yesterday evening of 13. Labs are currently pending this a.m. He continues on omeprazole. PHYSICAL EXAMINATION: General: This is a 34-year-old white male resting quietly in bed. He is in no acute distress. Skin: Warm and dry. HEENT: Normocephalic, atraumatic. Conjunctiva is pink. He has HARRISON. Mucous membranes are dry. Neck: Supple. Trachea midline. No evidence of JVD. Cardiovascular: Regular rate and rhythm. He is sinus rhythm on the monitor. Lungs: Clear to auscultation bilaterally. Equal excursion on room air. Abdomen: Soft, round, nontender. Positive bowel sounds. Genitourinary: Not inspected. Voiding adequate amount that is recorded. Integumentary: No rashes or lesions evident though he has multiple tattoos to the left and upper arms. Extremities: Lower have no edema. No clubbing or cyanosis. Neurological: Alert and oriented x3. ASSESSMENT AND PLAN: Ethylene glycol ingestion. Anion gap has remained stable at 10 yesterday. We are awaiting labs today. His osmolar gap was 13 yesterday evening. We will wait for his osmolar gap to get less than 10 before we stop his fomepizole. The patient remains under caution with sitter at the bedside for watch. I would like to thank you for allowing us to follow with this patient. Dictated by ANA Mcgee for Bony Gallardo MD Face to face encounter, data reviewed, discussed with Meli Matamoros on 09/12/19. I agree with the above assessment and plan of care. cc: ANA Mcgee MD [facility]
--- NOTE | 2019-09-12 15:09 | PROGRESS NOTE ---
DATE: 09/12/2019 SUBJECTIVE: He has no major complaints. Seems to be doing okay from that standpoint. OBJECTIVE: Blood pressure is 132/80, heart rate of 69, respiratory rate 23, temperature 98.6 degrees, 100% on room air. Cardiovascular: Regular rate and rhythm. Pulmonary: Bilateral breath sounds clear to auscultation. GI: Soft, nontender, nondistended. Bowel sounds were positive. He looks completely normal. PROBLEM LIST: Ethylene glycol overdose. He seems to be doing okay. He still has somewhat of an osmolal gap right around 17 today but there is no acidosis. His creatinine is normal so we are going to continue to follow. At this point, we are awaiting for his osmolar gap to be less than 10 but according to Poison Control, he can be discharged. cc: Zenon Berrios MD
[2019-09-12 17:01] LABS: AGAP 13; BUN 17 mg/dL (8-22); CALCIUM 9.7 mg/dL (8.8-10.2); CHLORIDE 100 mmol/L (98-107); COSMO 281; ESTIMATED GFR > 60; GLUCOSE 92 mg/dL (70-104); POTASSIUM 5.2 mmol/L (3.5-5.1); SODIUM 140 mmol/L (136-145); TCO2 27 mmol/L (25-35)
[2019-09-13] MEDS: ANTIZOL IV SCH (08:00)
[2019-09-13] MEDS: NS IV SCH (08:00)
[2019-09-13 08:26] LABS: AGAP 11; BUN 15 mg/dL (8-22); CALCIUM 9.1 mg/dL (8.8-10.2); CHLORIDE 101 mmol/L (98-107); COSMO 278; ESTIMATED GFR > 60; GLUCOSE 85 mg/dL (70-104); POTASSIUM 4.2 mmol/L (3.5-5.1); SODIUM 139 mmol/L (136-145); TCO2 27 mmol/L (25-35)
--- NOTE | 2019-09-13 08:38 | NEPHROLOGY PROGRESS NOTE ---
DATE: 09/13/2019 TIME SEEN: 0700. SUBJECTIVE: Mr. Fowler is resting quietly in bed. He has no complaints today. States that he is ready to start moving and getting on with his life. LABORATORY DATA: Currently pending this a.m. The patient had an anion gap of 13 yesterday. He had an osmolar gap of 17 yesterday a.m. The patient remains on fomepizole. Labs are currently pending. Previous hemoglobin 12.9. Potassium 5.2, BUN 17, creatinine 1, previous CO2 of 28. OBJECTIVE: Most Recent Vital Signs: Temperature 97.6 degrees, blood pressure 110/57, heart rate 60, respirations 18. He is on room air. Last recorded saturation 97%. He has had 1100 in, he has had 600 out to void. General: This is a 34-year-old, white male, resting quietly in bed. He appears in no acute distress. Skin: Warm and dry. HEENT: Normocephalic, atraumatic. Conjunctiva is pale pink. He has HARRISON. Mucous membranes are moist. Neck: Supple. Trachea midline. No evidence of JVD. Cardiovascular: Regular rate and rhythm. Sinus rhythm on the monitor. Lungs: Clear to auscultation bilaterally. Equal excursion on room air. Abdomen: Soft, nontender. Positive bowel sounds. Genitourinary: Not inspected. The patient continues to void adequate amount that is recorded. Integumentary: No rashes or lesions evident, except for his multiple tattoos to the upper extremities and chest. Genitourinary: Not inspected. The patient is voiding adequate amounts. Extremities: No edema. No clubbing or cyanosis. Neurological: He is alert and oriented x3. ASSESSMENT AND PLAN: 1. Ethylene glycol ingestion. The patient's anion gap had been 10 the day before, 17 yesterday morning. We are awaiting labs this morning. Previous anion gap of 10. Osmolar gap yesterday was 17. Osmolar gap 13 today. Will stop fomepizole. 2. The patient remains with sitter at bedside under watch. I would like to thank you for allowing us to follow with this patient. Dictated by ANA Mcgee for Bony Gallardo MD Face to face encounter, data reviewed, discussed with Meli Matamoros on 09/13/19. I agree with the above assessment and plan of care. cc: ANA Mcgee MD [facility]TD[facility]
[2019-09-13 11:25] LABS: IRON SATURATION 19 %; TIBC 230 ug/dL; TOTAL IRON 44 ug/dL (53-167); UNBOUND IRON 186 ug/dL (112-346)
[2019-09-13 11:51] VITALS: BP 121/60
--- NOTE | 2019-09-13 21:06 | DISCHARGE SUMMARY ---
ADMISSION DATE: 09/07/2019 DISCHARGE DATE: 09/13/2019 SUBJECTIVE: Patient has no major complaints. DISCHARGE DIAGNOSES: 1. Ethylene glycol overdose. 2. Tobacco abuse. 3. Initial suicidal ideation, which had resolved. CONSULTATIONS: Dr. Gallardo and Jessy Gonzalez for psychiatric evaluation. PROCEDURES: None. This is a 34-year-old male who was brought to the ER after intentionally ingesting antifreeze and his girlfriend left a 5-year-old and he drank a bottle of antifreeze, which was witnessed, and then he came in and they recommended IV Antizol. His ethylene glycol level, though, was unknown. He was given 10 mg/kg every 12 hours, 171 pounds so it was around 90 mg, but in any case, patient was evaluated by Dr. Gallardo. He had an osmolality gap of 14. He was maintained on the fomepizole. He never really showed any signs of toxicity. His kidney function was normal during the entire course, started at 0.8, was 1.0 at discharge. He was never really profoundly acidotic. His bicarbonate was 21, is 27 at discharge. He still has a little bit of an osmolal gap, but overall he seems to be doing okay. He does not have anemia. He has microcytosis, but he is not anemic, so he does look like he had a little bit of iron deficiency, though. I recommend supplementing his iron load, but he is not anemic. So, in any case, the patient was felt stable for discharge on the . Dr. Gallardo evaluated patient. He looked okay, recommended labs in a couple days. Fomepizole was stopped. He was analyzed by [facility] and they did not feel he required inpatient care. Recommended outpatient follow-up, so he will be discharged. Told to stay well hydrated. Told to come back for labs on the , and follow closely. No discharge medications. 32 minute discharge. cc: Zenon Berrios MD
== END 2019-09-13 15:00 | disposition home or self-care (01) | DRG 918 ==
LOC: P.ED 17:31 → ICU 22:36 → SUATTDRO 22:36 → 3N 09-09 15:38
PROVIDERS: ATTEND Internal Medicine